=== PATIENT | female | born 1985 | race Caucasian/White ===

== ENCOUNTER 2019-10-10 17:15 | Emergency (ER) | payer OTHER, SELFPAY ==
[2019-10-10 17:31] VITALS: BP 98/63; PULSE 101; RESP 18; TEMP 35.8; O2SAT 100
[2019-10-10 17:45] LABS: Basophils Percent Auto 0.3 % (0.2-1.2); Hematocrit 43.3 % (42.0-52.0); Hemoglobin 14.8 g/dL (14.0-18.0); Immature Granulocyte Absolute 0.09 K/mm3 (0.00-0.031); Immature Granulocyte Percent A 0.6 % (0-0.5); Lymphocytes Absolute Auto 0.67 K/mm3 (0.9-3.2); Lymphocytes Percent Auto 4.5 % (18.3-44.2); Mean Corpuscular HGB Conc 34.2 g/dl (32-36); Mean Corpuscular Volume 87.8 fl (80-100); Mean Platelet Volume 10.8 fl (7.4-10.4); Monocytes Absolute Auto 0.3 K/mm3 (0.1-0.6); Neutrophils Absolute Auto 13.7 K/mm3 (1.3-6.7); Neutrophils Percent Auto 92.6 % (45.5-73.1); Platelet Count Result 350 k/mm3 (150-375); Red Blood Count 4.93 M/mm3 (4.6-6.20); Red Cell Distribution Width 15.1 % (11.5-14.5); White Blood Count 14.8 K/mm3 (4.5-10.0)
[2019-10-10 17:59] LABS: Add Urine Microscopic? YES; Appearance Urine Clear (Clear); Bacteria Urine Trace /hpf; Bilirubin Urine Negative (Negative); Blood Urine 1+ (Negative); Color Urine Yellow (Yellow); Glucose Urine UA Negative (Negative); Ketones Urine 2+ mg/dL (Negative); Leukocyte Esterase Ur 1+ LEU/UL (Negative); Mucus Urine Moderate /lpf; Nitrate Urine Negative (Negative); Protein Urine 2+ mg/dL (Negative); Renal Epithelial Cells Urine Rare /hpf (None Seen); Specific Grav Ur 1.028 (1.001-1.035); Squamous Epithelial Cell Urine Many /hpf (Few); Urobilinogen Urine Negative mg/dL (<2.0)
[2019-10-10 18:04] LABS: Alanine Aminotransferase 30 U/L (4-50); Albumin Level 4.9 g/dL (3.5-5.1); Alkaline Phosphatase 112 U/L (38-126); Aspartate Amino Transferase 30 U/L (17-59); Bilirubin,Total 0.5 mg/dL (0.2-1.3); Blood Urea Nitrogen 9 mg/dL (9-20); Calcium 10.1 mg/dL (8.4-10.2); Carbon Dioxide 20 mmol/L (22-30); Chloride 108 mmol/L (98-107); Estimated Glomerular Filt Rate > 60; Glucose 127 mg/dL (75-110); Lipase 61 U/L (23-300); Sodium 138 mmol/L (137-145)
[2019-10-10] MEDS: ONDANSETRON INJ 4 MG/2 ML VIAL IV PUSH (19:45)
[2019-10-10] MEDS: SODIUM CHLORIDE 0.9% IV 1,000 ML 999 ML IV CONT ×2 (19:45→21:23)
[2019-10-10] MEDS: FAMOTIDINE 20 MG/2 ML VIAL IV PUSH (19:45)
--- NOTE | 2019-10-10 20:50 | ED.NAVMDI ---
HPI - Nausea/Vomiting/Diarrhea General Chief complaint: Nausea/Vomiting/Diarrhea Stated complaint: n/v/d x 1 day Time Seen by Provider: 10/10/19 19:29 Source: patient and family Mode of arrival: ambulatory Limitations: no limitations History of Present Illness HPI Narrative: Patient is a 34-year-old male female who presents with acute onset of vomiting and diarrhea that began earlier today with multiple episodes of each that persisted throughout the day patient notes now she is unable to have vomiting or diarrhea due to dehydration patient notes some discomfort of the abdomen that is worse with retching patient noted some chills but denies any current fever patient denies sick contacts has not taken anything for her symptoms patient on arrival was in the room in no apparent distress symptoms are worse with activity and movement Related Data Home Medications Medication Instructions Recorded Confirmed hydroxychloroquine 10/10/19 10/10/19 methotrexate sodium 10/10/19 Allergies Allergy/AdvReac Type Severity Reaction Status Date / Time codeine Allergy Hyperactive Verified 10/10/19 21:23 Penicillins Allergy Hives Verified 10/10/19 21:23 prochlorperazine AdvReac Muscle Verified 10/10/19 21:22 [From Compazine] Spasms Review of Systems Review of Systems: All systems reviewed & are unremarkable except as noted in HPI and below PMFSH Past Medical History Medical History (Updated 10/10/19 @ 22:09 by Juice Anderson PA-C) Rheumatoid arthritis Surgical History Surgical History H/O breast augmentation Social History Social History (Updated 10/10/19 @ 20:55 by Juice Anderson PA-C) Smoking status: Never smoker Exam Narrative: Exam Narrative: GENERAL: ill-appearing, well-nourished, and in no acute distress. HEAD: Normocephalic, atraumatic. EYES: PERRLA and EOMI. ENT: Nares clear, no rhinorrhea or epistaxis. Mucous membranes moist. CHEST: Clear to auscultation. No respiratory distress. No wheezes rales or rhonchi HEART: Regular rate and rhythm. No murmur heard. Normal peripheral pulses. ABDOMEN: Soft, generalized tenderness of the abdomen no rebound or guarding, nondistended EXTREMITIES: Normal range of motion. No edema. SKIN: Warm, dry, no rash. NEURO: No focal deficits. Alert and oriented x3. PSYCH: Normal mood and affect. Course Course Emergency Course: Patient in the room at this time resting comfortably with improvement with medications drinking Sprite felt appropriate for outpatient reevaluation agreeing to return if symptoms worsen Vital Signs Vital signs: Vital Signs Temperature 96.5 F L 10/10/19 17:31 Pulse Rate 101 H 10/10/19 17:31 Respiratory Rate 18 10/10/19 17:31 Blood Pressure 98/63 L 10/10/19 17:31 Pulse Oximetry 100 10/10/19 17:31 Temperature 96.5 F L 10/10/19 17:31 Pulse Rate 101 H 10/10/19 17:31 Respiratory Rate 18 10/10/19 17:31 Blood Pressure 98/63 L 10/10/19 17:31 Pulse Oximetry 100 10/10/19 17:31 MDM - Nausea/Vomiting/Diarrhea MDM Narrative Medical decision making narrative: Patient in the room at this time in no distress was hydrated and given medications with improvement patient provided with reasons to return patient is afebrile nontoxic-appearing no distress. Differential Diagnosis Differential diagnosis: Likely gastroenteritis and dehydration Lab Data Result diagrams: 10/10/19 17:38 10/10/19 17:38 Labs: Lab Results 10/10/19 10/10/19 10/10/19 Range/Units 17:38 17:38 17:48 WBC 14.8 H (4.5-10.0) K/mm3 RBC 4.93 (4.6-6.20) M/mm3 Hgb 14.8 (14.0-18.0) g/dL Hct 43.3 (42.0-52.0) % MCV 87.8 (80-100) fl MCH 30.0 (26-34) pg MCHC 34.2 (32-36) g/dl RDW 15.1 H (11.5-14.5) % Plt Count 350 (150-375) k/mm3 MPV 10.8 H (7.4-10.4) fl Immature Gran % (Auto) 0.6 H (0-0.5) % Neut % (Auto) 92.6 H (45.5-7
[2019-10-10] MEDS: diphenhydrAMINE HCl INJ 50 MG/ML VIAL 25 MG IV PUSH (21:23)
[2019-10-10] MEDS: METOCLOPRAMIDE HCL INJ 10 MG/2 ML VIAL IV PUSH (21:56)
[2019-10-10 22:31] VITALS: BP 130/80; PULSE 80; RESP 17; TEMP 36.7; O2SAT 99
== END 2019-10-10 22:33 | disposition home or self-care (01) ==
PROVIDERS: Emergency Provider Emergency Medicine; PCP Internal Medicine Medical Oncology
DX: R10.84 Generalized abdominal pain (principal); M06.9 Rheumatoid arthritis, unspecified
CPT/HCPCS: 36415; 80053; 81001; 81025; 83690; 85025; 96361; 96365; 96375; 99284; J0131; J1200; J2060; J2405; J2765; J7030

== ENCOUNTER 2019-10-12 09:42 | Emergency (ER) | payer OTHER, SELFPAY ==
--- NOTE | ~2019-10-12 | CT_ITS ---
EXAMINATION: CT abdomen pelvis w con EXAM DATE: 10/12/2019 11:16 INDICATION: Nausea vomiting and diarrhea. TECHNIQUE: Spiral CT of the abdomen and pelvis was performed following intravenous injection of 100 m L Omnipaque 350. Axial, coronal and sagittal images were reviewed. The dose-length product (DLP) fo r this examination was 356.63 mGy-cm. The exposure was tailored according to patient size (auto mA e xposure control), and iterative reconstruction (ASIR) was used as additional dose reduction technique . There is no prior study for comparison. FINDINGS: The liver, spleen, adrenal glands and pancreas are unremarkable. Gallbladder is unremarkab le. No biliary obstruction. Portal and splenic veins are patent. Kidneys enhance symmetrically. T here is no hydronephrosis. There is IUD which appears to be centrally located within the endometriu m, expected position. The bladder is unremarkable. There is no retroperitoneal or pelvic lymphadeno eduardo. The appendix is normal. The stomach and small bowel are unremarkable. There is expected amount of c olonic stool. No free intraperitoneal gas. The heart is normal in size. There are no pericardial or pleural effusions. The lung bases are unremarkable. Sclerosis of the right sacroiliac joints, o nly minimal on the left, asymmetric sacroiliitis, with possible underlying etiologies including osteo arthritis, psoriatic arthritis, reactive arthritis. IMPRESSION: 1. No acute intra-abdominal findings. 2. Asymmetric sacroiliitis. Reviewed, dictated and finalized at location A.
[2019-10-12 09:53] VITALS: BP 112/65; PULSE 54; RESP 18; TEMP 36.3; O2SAT 100
[2019-10-12 10:16] LABS: Basophils Absolute Auto 0.1 K/mm3 (0.0-0.1); Basophils Percent Auto 0.7 % (0.2-1.2); Eosinophils Absolute Auto 0.1 K/mm3 (0-0.3); Eosinophils Percent Auto 0.7 % (0-4.4); Hematocrit 38.8 % (42.0-52.0); Hemoglobin 13.6 g/dL (14.0-18.0); Immature Granulocyte Percent A 0.8 % (0-0.5); Lymphocytes Absolute Auto 1.33 K/mm3 (0.9-3.2); Lymphocytes Percent Auto 10.5 % (18.3-44.2); Mean Corpuscular HGB Conc 35.1 g/dl (32-36); Mean Corpuscular Hemoglobin 30.3 pg (26-34); Mean Corpuscular Volume 86.4 fl (80-100); Mean Platelet Volume 10.7 fl (7.4-10.4); Monocytes Absolute Auto 0.9 K/mm3 (0.1-0.6); Monocytes Percent Auto 6.9 % (2.6-8.5); Neutrophils Absolute Auto 10.1 K/mm3 (1.3-6.7); Neutrophils Percent Auto 80.4 % (45.5-73.1); Platelet Count Result 316 k/mm3 (150-375); Red Blood Count 4.49 M/mm3 (4.6-6.20); Red Cell Distribution Width 14.7 % (11.5-14.5); White Blood Count 12.6 K/mm3 (4.5-10.0)
[2019-10-12 10:28] LABS: Add Urine Microscopic? YES; Appearance Urine Clear (Clear); Bacteria Urine Trace /hpf; Bilirubin Urine Negative (Negative); Blood Urine Negative (Negative); Color Urine Yellow (Yellow); Glucose Urine UA Negative (Negative); Ketones Urine 1+ mg/dL (Negative); Leukocyte Esterase Ur 2+ LEU/UL (Negative); Mucus Urine Moderate /lpf; Nitrate Urine Negative (Negative); Protein Urine 1+ mg/dL (Negative); RBC Urine 0-2 /hpf (0-2); Specific Grav Ur 1.024 (1.001-1.035); Squamous Epithelial Cell Urine Many /hpf (Few)
[2019-10-12 10:31] VITALS: BP 117/73; BP 119/76; PULSE 55; PULSE 56
[2019-10-12 10:33] VITALS: BP 112/73; PULSE 58
[2019-10-12 10:35] LABS: Alanine Aminotransferase 29 U/L (4-50); Albumin Level 4.5 g/dL (3.5-5.1); Alkaline Phosphatase 93 U/L (38-126); Anion Gap 14.3 mmol/L (7-16); Aspartate Amino Transferase 31 U/L (17-59); Bilirubin,Total 0.3 mg/dL (0.2-1.3); Blood Urea Nitrogen 12 mg/dL (9-20); Calcium 9.2 mg/dL (8.4-10.2); Carbon Dioxide 21 mmol/L (22-30); Chloride 107 mmol/L (98-107); Estimated Glomerular Filt Rate > 60; Glucose 98 mg/dL (75-110); Lipase 81 U/L (23-300); Potassium 3.3 mmol/L (3.4-5.0); Sodium 139 mmol/L (137-145)
--- NOTE | 2019-10-12 10:49 | ED.GENADULT ---
HPI - General Adult General Chief complaint: Nausea/Vomiting/Diarrhea <VIJAYA Garcia Last Filed: 10/12/19 13:48> Stated complaint: n/v/d <VIJAYA Garcia Last Filed: 10/12/19 13:48> Time Seen by Provider: 10/12/19 10:11 <VIJAYA Garcia Last Filed: 10/12/19 13:48> Source: patient and family <VIJAYA Garcia Last Filed: 10/12/19 13:48> Mode of arrival: ambulatory <VIJAYA Garcia Last Filed: 10/12/19 13:48> Limitations: no limitations <VIJAYA Garcia Filed: 10/12/19 13:48> History of Present Illness HPI narrative: Patient is a 34-year-old female who presents to emergency emergency department for evaluation of abdominal pain and vomiting that is been present with nausea for a month and vomiting over the last week patient notes generalized pain of the abdomen patient was seen in the emergency department is been diagnosed with abdominal pain and vomiting sent home with antiemetics antispasmodics and antihistamines with minimal improvement. Patient notes intermittent anxiety and emesis. Patient has not been seen for this complaint by her specialist . 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 Patient on arrival is in the room in no distress denies fever or sick contacts <VIJAYA Garcia Last Filed: 10/12/19 13:48> Related Data Home medications: Home Medications Medication Instructions Recorded Confirmed hydroxychloroquine 10/10/19 10/10/19 methotrexate sodium 10/10/19 <VIJAYA Garcia Last Filed: 10/12/19 13:48> Allergies/adverse reactions: Allergies Allergy/AdvReac Type Severity Reaction Status Date / Time codeine Allergy Hyperactive Verified 10/12/19 10:05 Penicillins Allergy Hives Verified 10/12/19 10:05 prochlorperazine AdvReac Muscle Verified 10/12/19 10:05 [From Compazine] Spasms <VIJAYA Garcia Last Filed: 10/12/19 13:48> Review of Systems Review of Systems: All systems reviewed & are unremarkable except as noted in HPI and below <VIJAYA Garcia Last Filed: 10/12/19 13:48> FOR[facility]LY [facility], [facility] Past Medical History Medical History: Medical History Rheumatoid arthritis <Juice Anderson PA-C - Last Filed: 10/12/19 13:48> Social History Social History: Social History Smoking status: Never smoker Gender identity (if verbalized by the patient): Female <Juice Anderson PA-C - Last Filed: 10/12/19 13:48> Exam Narrative: Exam Narrative: GENERAL: Well-appearing, well-nourished, and in no acute distress. HEAD: Normocephalic, atraumatic. EYES: PERRLA and EOMI. ENT: Nares clear, no rhinorrhea or epistaxis. Mucous membranes moist. Oropharynx without tonsillar hypertrophy exudate or other lesions. NECK: Supple. No adenopathy or masses. CHEST: Clear to auscultation. No respiratory distress. No wheezes rales or rhonchi HEART: Regular rate and rhythm. No murmur heard. Normal peripheral pulses. ABDOMEN: Soft, generalized tenderness, nondistended EXTREMITIES: Normal range of motion. No edema. SKIN: Warm, dry, no rash. NEURO: No focal deficits. Alert and oriented x3. Cranial nerves II through XII grossly intact PSYCH: Normal mood and affect. <Juice Anderson PA-C - Last Filed: 10/12/19 13:48> Course Course Emergency Course: Patient is a 34-year-old female who presented with nausea and vomiting for her second visit patient was given medications with improvement and is tolerating p.o. intake patient is afebrile nontoxic-appearing no distress and felt appropriate for outpatient reevaluation patient provided with gastroenterology and primary care follow-ups. . Patient agrees to return if symptoms worsen <Juice Anderson PA-C - Last Filed: 10/12/19 13:48> Vital Signs Vital signs: Vital Signs Temperature 36.3 C L
[2019-10-12] MEDS: METOCLOPRAMIDE HCL INJ 10 MG/2 ML VIAL IV PUSH (10:54)
[2019-10-12] MEDS: diphenhydrAMINE HCl INJ 50 MG/ML VIAL 25 MG IV PUSH (10:54)
[2019-10-12] MEDS: FAMOTIDINE 20 MG/2 ML VIAL IV PUSH (10:55)
[2019-10-12] MEDS: LACTATED RINGERS 1,000 ML 999 ML IV CONT ×2 (10:55→12:12)
[2019-10-12 10:56] VITALS: BP 117/56; PULSE 54; RESP 17; O2SAT 99
[2019-10-12 12:49] VITALS: BP 134/80; PULSE 67; RESP 16; TEMP 36.6; O2SAT 100
[2019-10-12 14:22] VITALS: BP 131/71; PULSE 64; RESP 16; TEMP 36.8; O2SAT 100
== END 2019-10-12 14:23 | disposition home or self-care (01) ==
PROVIDERS: Emergency Provider Emergency Medicine
DX: R10.9 Unspecified abdominal pain (principal); M06.9 Rheumatoid arthritis, unspecified
CPT/HCPCS: 36415; 74177; 80053; 81001; 81025; 83690; 85025; 87086; 96361; 96374; 96375; 99284; J1200; J2060; J2765; J7030; J7120; Q9967

== ENCOUNTER 2019-11-05 01:44 | Outpatient (CLI) | payer OTHER, SELFPAY ==
[2019-11-05 18:01] LABS: SARS-CoV-2 RNA PCR Negative
== END 2019-11-05 01:45 | disposition home or self-care (01) ==
LOC: ANHCOVIDDT 01:44
PROVIDERS: PCP Nurse Practitioner Adult Health; Visit Provider Internal Medicine Gastroenterology
DX: Z01.812 Encounter for preprocedural laboratory examination (principal); Z20.828 Contact with and (suspected) exposure to other viral communicable diseases
CPT/HCPCS: 87635; C9803; U0003

== ENCOUNTER 2019-11-08 03:04 | Day surgery (SDC) | payer OTHER, SELFPAY ==
[2019-10-28 10:06] VITALS: BMI 29.5
[2019-11-08 07:33] VITALS: BP 108/71; PULSE 83; RESP 18; TEMP 36.2; O2SAT 100; BMI 29.6
--- NOTE | 2019-11-08 07:44 | WPDGICN ---
Assessment and Plan Assessment and plan (1) Nausea & vomiting: Code(s): R11.2 - Nausea with vomiting, unspecified Status: Acute Assessment and Plan: Because of recurrent ongoing nausea vomiting plan is to pursue an EGD. Continuing proton pump inhibitors. Anti-reflux measures. Strongly encourage. [place] food is encouraged. Further recommendations will be given after endoscopy. (2) Gastroenteritis: Code(s): K52.9 - Noninfective gastroenteritis and colitis, unspecified Status: Acute (3) Rheumatoid arthritis: Code(s): M06.9 - Rheumatoid arthritis, unspecified Status: Acute GI Consult Note Consult date/time: 11/08/19 07:44 HPI: Abeba Hickman is a 34 year old female Seen in evaluation at the request of nurse practitioner Gabby Zheng. Patient reports recurrent vomiting and diarrhea. She initially vomited 10/10/2019 prompting her to go to the emergency room. She return to the ER in 722 because of ongoing nausea vomiting. Since that time she has been maintained on Prilosec 20 mg p.o. daily with mild improvement. Symptoms have persisted however she continues to be nauseated. Today she presents for an EGD. Patient denies any bleeding. She denies any weight loss. Past medical history is significant for rheumatoid arthritis. She complains of joint aches. At home medications include methotrexate and hydroxychloroquine which she has taken for many years. Recent implementation of omeprazole and Pepcid have failed to completely alleviate her symptoms. Review of Systems Review of Systems: All systems reviewed & are unremarkable except as noted in HPI and below PMFSH Past Medical History Medical History Rheumatoid arthritis Surgical History Surgical History H/O breast augmentation Social History Social History Smoking status: Never smoker Gender identity (if verbalized by the patient): Female Meds Home Medications and Allergies Home Medications Medication Instructions Recorded Confirmed Type hydroxychloroquine 200 mg PO DAILY 10/10/19 10/28/19 History methotrexate sodium 2.5 mg PO DAILY 10/10/19 10/28/19 History levonorgestrel [Mirena] 1 device INTRAUTERINE ONCE 10/28/19 10/28/19 History loratadine [Claritin] 10 mg PO DAILY 10/28/19 10/28/19 History omeprazole 40 mg PO DAILY 10/28/19 10/28/19 History Allergies Allergy/AdvReac Type Severity Reaction Status Date / Time codeine Allergy Hyperactive Verified 11/08/19 07:29 Penicillins Allergy Hives Verified 11/08/19 07:29 prochlorperazine AdvReac Muscle Verified 11/08/19 07:29 [From Compazine] Spasms Vital Signs Vital Signs - 24 hr 11/08/19 07:33 Temperature 97.2 F L Pulse Rate 83 Respiratory Rate 18 Blood Pressure 108/71 Pulse Oximetry 100 Exam Narrative: Exam Narrative: Physical exam reveals Vital Signs to be stable. HEENT exam unremarkable. Lungs are clear. Heart without murmur. Abdominal exam bowel sounds are present soft nontender with no organomegaly. Recent CT scan of the abdomen was unremarkable as well.
[2019-11-08] MEDS: LACTATED RINGERS 1,000 ML 150 ML IV CONT (07:45)
--- NOTE | 2019-11-08 07:53 | WPDANESEPPF ---
Anes - Initial Pre Proc Eval Procedure: Operation Date: 11/08/19 08:30 Proposed Procedures p Esophagogastroduodenoscopy - Braeden Avelar MD Date/Time: 11/08/19 07:53 Surgeon: Braeden Avelar MD Pre Op Diagnosis: epigastric pain, nausea, vomiting Patient Data Age: 34 Gender: F Height: 4 ft 9 in Weight: 62.1 kg Last Vital Signs Temp 97.2 F L 11/08/19 07:33 Pulse 83 11/08/19 07:33 Resp 18 11/08/19 07:33 BP 108/71 11/08/19 07:33 Pulse Ox 100 11/08/19 07:33 Allergies Allergy/AdvReac Type Severity Reaction Status Date / Time codeine Allergy Hyperactive Verified 11/08/19 07:29 Penicillins Allergy Hives Verified 11/08/19 07:29 prochlorperazine AdvReac Muscle Verified 11/08/19 07:29 [From Compazine] Spasms Home Medications Medication Instructions Recorded Confirmed Type hydroxychloroquine 200 mg PO DAILY 10/10/19 10/28/19 History methotrexate sodium 2.5 mg PO DAILY 10/10/19 10/28/19 History levonorgestrel [Mirena] 1 device INTRAUTERINE ONCE 10/28/19 10/28/19 History loratadine [Claritin] 10 mg PO DAILY 10/28/19 10/28/19 History omeprazole 40 mg PO DAILY 10/28/19 10/28/19 History Patient hx anesthesia problems: none Family hx anesthesia problems: none [facility] Past Medical History Medical History (Updated 11/08/19 @ 07:48 by Christoph Wooten MD) Anxiety GERD (gastroesophageal reflux disease) Rheumatoid arthritis Surgical History Surgical History H/O breast augmentation Social History Social History Smoking status: Never smoker Gender identity (if verbalized by the patient): Female Anes - Eval Final PreProcedure Day of Procedure 11/08/19 07:53 Patient weight: normal Heart: regular rate and rhythm Lungs: clear to auscultation Airway: Mallampati scale class II Neurological: alert and oriented Last oral intake: >/= 8 hours ASA classification: II Emergent: no Anesthetic plan: proceed Anesthesia type and monitoring: general GIVS and standard monitoring Informed Consent: The patient's anesthetic plan and its attendant risks and benefits were discussed with the patient/family/POA. Questions were solicited and answers provided to the satisfaction of the patient/family/POA.
[2019-11-08] MEDS: BENZOCAINE (*SP) 60 ML SPRAY CAN (HURRICAINE) 1 SPRAY MUCOUS MEM (08:07)
[2019-11-08 08:23] VITALS: BP 91/51; PULSE 64; RESP 23; O2SAT 98
[2019-11-08 08:33] VITALS: BP 99/61; PULSE 68; RESP 22; O2SAT 97
[2019-11-08 08:43] VITALS: BP 126/54; PULSE 67; RESP 18; O2SAT 98
== END 2019-11-08 08:50 | disposition home or self-care (01) ==
PROVIDERS: PCP Nurse Practitioner Adult Health; Visit Provider Internal Medicine Gastroenterology
PROC: 0DJ08ZZ Inspection of Upper Intestinal Tract, Via Natural or Artificial Opening Endoscopic (ICD-10-PCS; CPT 43235; principal; 2019-11-08 08:30)
DX: R11.2 Nausea with vomiting, unspecified (principal); K52.9 Noninfective gastroenteritis and colitis, unspecified; M06.9 Rheumatoid arthritis, unspecified; Z71.1 Person with feared health complaint in whom no diagnosis is made
CPT/HCPCS: 43239; 87081; J2704; J7120

== ENCOUNTER 2019-11-16 07:18 | Outpatient (CLI) | payer OTHER, SELFPAY ==
--- NOTE | ~2019-11-16 | US_ITS ---
EXAMINATION: US right upper quadrant EXAM DATE: 11/16/2019 08:02 INDICATION: Nausea. TECHNIQUE: Multiple grayscale and Doppler images of the abdomen right upper quadrant were obtained (randy y a technologist who performed the scan) and subsequently reviewed. There is no prior study for renetta read. FINDINGS: The pancreatic head and body are normal in appearance. The pancreatic tail is not visualized. The l iver has normal echogenicity and contour. There are no focal liver lesions identified. There is no evidence of intrahepatic biliary duct dilation. Portal venous flow was seen in the hepatopedal, nor mal direction and has normal Doppler waveform. No right-sided hydronephrosis. Common bile duct measures 4 mm, which is normal. The gallbladder wall is normal in thickness, with ex pected amount of distention. No sonographic evidence of pericholecystic fluid. There is no cholelit hiases. Technologist performing exam reports patient did not demonstrate sonographic Vanessa's sign. Please note that this sign is less reliable in patients who have received pain medication. IMPRESSION: 1. Unremarkable abdominal ultrasound exam. Reviewed, dictated and finalized at location A.
== END 2019-11-16 07:19 | disposition home or self-care (01) ==
LOC: ANHIMG 07:19
PROVIDERS: PCP Nurse Practitioner Adult Health; Visit Provider Internal Medicine Gastroenterology
DX: R11.0 Nausea (principal)
CPT/HCPCS: 76705